=== PATIENT | male | born 1970 | race Caucasian/White ===

== ENCOUNTER 2017-03-15 09:58 | Day surgery (SDC) | payer MEDICARE, MEDICAID ==
[~2017-03-15 09:58] MED LIST: HYDROmorphone HCL 2 MG/ML VIAL IV PRN; RINGERS SOLUTION,LACTATED 1,000 ML IV PRN; VANCOMYCIN HCL 1 GM in DEXTROSE 5 % IN WATER 250 ML IV PRN; oxyCODONE HCL/ACETAMINOPHEN 1 TAB TABLET PO PRN
--- OUTSIDE RECORDS SUMMARY | 2017-03-15 10:03 | XMS REPORT | Continuity of Care Document ---
:1970 Author Organization [facility] ([facility]) Address [address] [place] [address] Phone [phone] Care Team Providers Name Role Phone Unavailable Primary Care Provider Unavailable Source Comments This disclosure is being made pursuant to the Care Everywhere program, applicable federal and state laws, and may not contain all informaitonavailable regarding this patient.[facility] ([facility]) Active Allergies and Adverse Reactions Not on File Current Medications Not on file Active Problems Not on file Social History Tobacco Use Types Packs/Day Years Used Date Never Assessed Last Filed Vital Signs Vital Sign Reading Time Taken Blood Pressure - - Pulse - - Temperature - - Respiratory Rate - - Height 1.83 m (6' 0.04") 02/28/2005 9:13 PM [employer] Weight 106.196 kg (234 lb 1.9 oz) 02/28/2005 9:13 PM [employer] Body Mass Index 31.71 02/28/2005 9:13 PM [employer] [employer] Oxygen Saturation - - Plan of Care Health Maintenance Due Date Last Done Comments Hepatitis B Vaccine (1 of 3 - Primary Series) 1970 Tdap Vaccine 1979 Lipid Disorder Screening 1986 MMR Vaccine 1986 Td Vaccine 1986 Influenza Vaccine: Seasonal (#1) 06/29/2016 Results from Last 3 Months Not on file
[2017-03-15] MEDS ORDERED: RINGERS SOLUTION,LACTATED 1,000 ML IV ONE ×2 (10:55→14:30)
[2017-03-15] MEDS ORDERED: BUPIVACAINE HCL 50 ML VIAL IJ ONE (12:35)
[2017-03-15 16:57] VITALS: BP 116/68
== END 2017-03-15 09:59 | disposition home or self-care (01) ==
LOC: AMB 09:58
PROVIDERS: ATTEND Orthopaedic Surgery
PROC: 0PSP04Z Reposition Right Metacarpal with Internal Fixation Device, Open Approach (ICD-10-PCS; principal; 2017-03-15 12:30)
DX: S62.316A Displaced fracture of base of fifth metacarpal bone, right hand, initial encounter for closed fracture (principal); S62.314A Displaced fracture of base of fourth metacarpal bone, right hand, initial encounter for closed fracture; F17.200 Nicotine dependence, unspecified, uncomplicated; Z68.30 Body mass index [BMI] 30.0-30.9, adult; W22.09XA Striking against other stationary object, initial encounter